=== PATIENT | female | born 1985 | race Caucasian/White ===

== ENCOUNTER 2017-06-10 13:38 | Emergency (ER) | payer BC ==
[~2017-06-10] VITALS: Ht 165.1 cm; Wt 71.4 kg
[~2017-06-10 13:38] MED LIST: AUGMENTIN25 MG/ML PO; Bactrim,Septra DS 80 PO; CIPRO500 MG PO; HUMALOG MI100 UNIT/3 IL; IMITREX100 MG PO; LANTUS 10100 UNITS/ SC; LANTUS100 UNIT/2 SQ; NOVOLOG100 UNIT/3 SQ; PERCOCET 5/31 TABLET PO; PROZAC20 M1 PO; REGLAN10 MG PO; SYNTHROID200 MCG PO; ZOFRAN4 MG PO; [UNRECOGNIZED DRUG - SUPPLY]
[2017-06-10 15:32] LABS: HEMATOCRIT 38.1 % (36.0-46.0); HEMOGLOBIN 13.4 G/DL (11.9-15.5); MCHC 35.2 G/DL (30.0-36.0); MCV 88.2 FL (83-99); PLATELET COUNT 313 K/uL (156-360); RBC DIS.WIDTH-SD 38.9 % (39-53); RED BLOOD COUNT 4.32 M/uL (3.80-5.20); WHITE BLOOD COUNT 6.7 K/uL (4.1-10.2)
[2017-06-10 15:40] LABS: CHLORIDE 98 mEq/L (99-109); POTASSIUM 5.2 mEq/L (3.7-5.4); SODIUM 136 mEq/L (136-147)
[2017-06-10 15:41] LABS: GLUCOSE 265 mg/dL (70-99)
[2017-06-10 15:45] LABS: CREATININE 1.2 mg/dL (0.6-1.3); GFR ESTIMATE (CALCULATED) 55 mL/min/
[2017-06-10 15:46] LABS: UREA NITROGEN (BUN) 18 mg/dL (9-23)
[2017-06-10 15:53] LABS: QUANTITATIVE HCG < 4.0 MIU/ML
[2017-06-10 16:02] LABS: APPEARANCE CLEAR ((CLEAR)); BILIRUBIN NEGATIVE; BLOOD NEGATIVE; COLOR STRAW ((YELLOW)); GLUCOSE (STRIP) 150; KETONES NEGATIVE; LEUKOCYTES NEGATIVE; NITRITE NEGATIVE; PROTEIN (STRIP) NEGATIVE; UCUL ADDED? NO; UROBILINOGEN 0.2 MG/DL (0.2-1.0)
[2017-06-10 17:37] VITALS: BP 139/90
== END 2017-06-10 17:38 | disposition home or self-care (01) ==
LOC: EME 13:38
PROVIDERS: Nurse Practitioner Family
DX: N83.201 Unspecified ovarian cyst, right side (principal); R10.31 Right lower quadrant pain; E10.9 Type 1 diabetes mellitus without complications; I10 Essential (primary) hypertension; E03.9 Hypothyroidism, unspecified; Z79.4 Long term (current) use of insulin; K31.84 Gastroparesis; Z88.5 Allergy status to narcotic agent; F17.200 Nicotine dependence, unspecified, uncomplicated
CPT/HCPCS: 74177; 80048; 81003; 84702; 85027; 99281; 99285; J2405; J3010; J7030